=== PATIENT | female | born 1990 | race African-American/Black ===

== ENCOUNTER 2018-05-13 22:25 | Emergency (ER) | payer OTHER ==
[2018-05-13 22:29] VITALS: BP 113/70; PULSE 80; TEMP 99.1; BMI 24.9
--- NOTE | 2018-05-13 23:00 | PDOC ---
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 Patient states the pain is exacerbated when eating and there are no alleviating factors. Past History - Past Medical History Allergies/Adverse Reactions: Allergies Allergy/AdvReac Type Severity Reaction Status Date / Time Sulfa (Sulfonamide Allergy Verified 05/13/18 22:29 Antibiotics) Home Medications: Ambulatory Orders Vit/Iron Fum/Folic AC [ Tablet] 1 each PO DAILY 02/08/15 Asthma: Yes COPD: No - Immunization History Immunization Up to Date: Yes - Suicide/Smoking/Psychosocial Hx Smoking History: Never smoked Hx Alcohol Use: Yes (occasion) Drug/Substance Use Hx: No Substance Use Type: None Review of Systems - Review of Systems Able to Perform ROS?: Yes Comments:: 05/13/18 23:07 CONSTITUTIONAL: Absent: fever, chills, diaphoresis, generalized weakness, malaise, loss of appetite HEENT: +right sided sore throat +right earache Absent: rhinorrhea, nasal congestion, throat swelling, difficulty swallowing, mouth swelling,eye pain, visual Changes CARDIOVASCULAR: Absent: chest pain, loss of consciousness, palpitations, irregular heart rate, peripheral edema RESPIRATORY: Absent: cough, shortness of breath, dyspnea with exertion, orthopnea, wheezing, stridor, hemoptysis GASTROINTESTINAL: Absent: abdominal pain, abdominal distension, nausea, vomiting, diarrhea, constipation, melena, hematochezia SKIN: Absent: rash, itching, pallor Is the patient limited Romansh proficient: No *Physical Exam - Vital Signs Last Vital Signs Temp Pulse Resp BP Pulse Ox 99.1 F 80 18 113/70 100 05/13/18 22:27 05/13/18 22:27 05/13/18 22:27 05/13/18 22:27 05/13/18 22:27 - Physical Exam Comments: 05/13/18 23:07 GENERAL: Well developed, well nourished. Awake and alert. No acute distress. HEENT: +exudate to right tonsillar region without swelling/erythema Normocephalic, atraumatic. PERRLA, EOMI. No conjunctival pallor. Sclera are non- icteric. Moist mucous membranes. Oropharynx is clear. NECK: Supple. Full ROM. No JVD. Carotid pulses 2+ and symmetric, without bruits. No thyromegaly. No lymphadenopathy. CARDIOVASCULAR: Regular rate and rhythm. No murmurs, rubs, or gallops. Distal pulses are 2+ and symmetric. PULMONARY: No evidence of respiratory distress. Lungs clear to auscultation bilaterally. No wheezing, rales or rhonchi. ABDOMINAL: Soft. Non-tender. Non-distended. No rebound or guarding. No organomegaly. Normoactive bowel sounds. SKIN: Warm and dry. Normal capillary refill. No rashes. No jaundice. *DC/Admit/Observation/Transfer Diagnosis at time of Disposition: Strep throat - Discharge Dispostion Disposition: HOME Condition at time of disposition: Stable Decision to Admit order: No - Referrals Referrals: Fernando Garner MD [Staff Physician] - - Patient Instructions Printed Discharge Instructions: DI for Strep Throat Additional Instructions: Gargle with salt water Take Tylenol alternating with Motrin as needed for pain You were given antibiotics by injection while in the emergency department. Therefore, you do not need to take any further medication. Follow with the ENT/Dr. Garner Return back to the ER for severe/persistent or worsening symptoms. - Post Discharge Activity
[2018-05-13] MEDS ORDERED: PENICILLIN G BENZATHINE 1,200,000 UNIT/2 ML PFS IM ONE (23:14)
[2018-05-13] MEDS ORDERED: PENICILLIN G BENZATHINE 2,400,000 UNIT/4 ML PFS ONE (23:38)
== END 2018-05-13 23:48 | disposition home or self-care (01) ==
LOC: JER 22:25
DX: J02.0 Streptococcal pharyngitis (principal); B95.0 Streptococcus, group A, as the cause of diseases classified elsewhere
CPT/HCPCS: 87070; 87077; 87430; 96372; 99282-25

== ENCOUNTER 2018-06-18 22:50 | Emergency (ER) | payer OTHER ==
[2018-06-18 23:06] VITALS: TEMP 98; BMI 24.5
--- NOTE | 2018-06-18 23:51 | PDOC ---
Attending Attestation - HPI HPI: 06/19/18 00:30 The patient is a 27 year old female with a PMH of asthma with no prior hospitalizations or intubations and depression who presents to the ED with abdominal cramping for the past week. Patient describes the abdominal cramping as a 6/10 in severity, intermittent and lasting for 20 minutes at a time. Patient has a history of chlamydia for which she received treatment. Patient is sexually active with one partner, and uses condoms. Patient has an IUD in place and has not had her period since. Patient has also been able to notice the IUD string over the past week. The patient denies chest pain, shortness of breath, headache and dizziness. Denies fever, chills, nausea, vomit, diarrhea and constipation. Denies dysuria, frequency, urgency and hematuria. Allergies: Sulfa Surgical: x2 Social: no reported alcohol, drug or cigarette use. <Bisi Grant - Last Filed: 06/19/18 00:30> - Resident Resident Name: Guicho Corbin - Physicial Exam PE: 06/19/18 01:57 Agree with resident exam. Patient is alert and oriented and in no acute distress. Abdomen is non soft, non tender and non distended without guarding or rebound. - Medical Decision Making 06/19/18 01:57 Pt presents to the ED complaining of pelvic pain that has been intermittent for several weeks. Differential includes PID, ovarian torsion, less likely intraabdominal pathology or UTI. Will check labs and pelvic US, reassess. <Hortencia Fernando - Last Filed: 06/19/18 01:56> - Medical Decision Making 06/19/18 03:07 Patient Name: MERVAT LEAL THIS IS A PRELIMINARY REPORT FROM [facility] DATE OF SERVICE: 2018-06-19 00:36:28 IMAGES: 48 EXAM: ULTRASOUND PELVIS, COMPLETE AND TRANSVAGINAL ULTRASOUND AND DUPLEX SCAN PELVIS, COMPLETE No ovarian torsion. Color flow bilaterally with appropriate arterial and venous waveforms. Small follicles in each ovary. No free fluid. IUD in satisfactory position in uterus. Endometrial stripe complex 4 mm thick. Unremarkable visualized portion of bladder. <Daniela Espinoza - Last Filed: 06/19/18 03:07>
--- NOTE | 2018-06-18 23:53 | PDOC ---
History of Present Illness - General Chief Complaint: Pain Stated Complaint: CRAMPS/SPOTTING Time Seen by Provider: 06/18/18 23:47 History Source: Patient - History of Present Illness Initial Comments: 06/18/18 23:53 The patient is a 27 year old female with a PMH of Asthma (no hospitalizations, no intubations) and Major Depressive Disorder who presents to our ED c/o 1 week h/o abdominal cramping. Cramping is intermittent, sharp, lasts 20 minutes and occurs multiple times daily. No fevers/chills, diarrhea/constipation, dysuria/ hematuria. Patient has Mirena IUD and states she has not had her period since IUD placement. Notes she has not been able to feel her IUD string for the past 1 week. H/o Chlamydia 6 months previous for which she and her partner were treated. Uses condoms for STI protection. H/o vaginal candidiasis two weeks previous, s/p Diflucan. Patient denies chest pain, shortness of breath, vaginal bleeding, nausea/ vomiting. Allergy: Sulfa Meds: Symbicort, Sertraline Surgical: C/S x2 Social: social alcohol, denies nicotine and recreational drugs PMD: None - will refer to IM resident clinic As per EMR patient evaluated in 2014 for gestational vaginal bleed at which time TVUS showed blighted ovary. Past History - Past Medical History Allergies/Adverse Reactions: Allergies Allergy/AdvReac Type Severity Reaction Status Date / Time Sulfa (Sulfonamide Allergy Verified 06/19/18 02:56 Antibiotics) Home Medications: Ambulatory Orders NK [No Known Home Medication] 06/19/18 Asthma: Yes Cancer: No COPD: No DVT: No Dialysis: No Disorders: No HTN: No - Surgical History Abdominal Surgery: No Appendectomy: No Cholecystectomy: No Gastric Stapling: No GI Surgery: No - Immunization History Immunization Up to Date: Yes - Suicide/Smoking/Psychosocial Hx Smoking History: Never smoked Hx Alcohol Use: Yes (occasion) Drug/Substance Use Hx: No Substance Use Type: None Review of Systems - Review of Systems Constitutional: No: Chills, Fever HEENTM: No: Blurred Vision, Double Vision Respiratory: No: Cough, Shortness of Breath Cardiac (ROS): No: Chest Pain, Lightheadedness, Palpitations, Syncope ABD/GI: Yes: Abdominal cramping. No: Constipated, Diarrhea, Nausea, Vomiting, Tarry Stools : No: Burning, Dysuria, Frequency, Urgency *Physical Exam - Vital Signs Last Vital Signs Temp Pulse Resp BP Pulse Ox 98 F 63 20 105/59 L 99 06/18/18 23:04 06/18/18 23:04 06/18/18 23:04 06/18/18 23:04 06/18/18 23:04 - Physical Exam General Appearance: Yes: Nourished, Appropriately Dressed HEENT: positive: Normal Voice, Hearing Grossly Normal Neck: positive: Trachea midline, Supple Respiratory/Chest: positive: Lungs Clear, Normal Breath Sounds Cardiovascular: positive: S1, S2. negative: Edema Female Pelvic Exam: positive: cervical os closed, CMT, other (CMT, no discharge , no blood in vaginal vault, non palpable adnexa B/L). negative: adnexal tenderness Gastrointestinal/Abdominal: positive: Normal Bowel Sounds, Soft, Other ( suprapubic TTP) Musculoskeletal: negative: CVA Tenderness (R), CVA Tenderness (L) Moderate Sedation - Procedure Monitoring Vital Signs: Procedure Monitoring Vital Signs Temperature 98 F 06/18/18 23:04 Pulse Rate 63 06/18/18 23:04 Respiratory Rate 20 06/18/18 23:04 Blood Pressure 105/59 L 06/18/18 23:04 O2 Sat by Pulse Oximetry (%) 99 06/18/18 23:04 ED Treatment Course - LABORATORY CBC & Chemistry Diagram: 06/19/18 00:25 12 00:25 Medical Decision Making - Medical Decision Making 06/19/18 00:07 27 year old female with suprapubic abdominal cramping w/o vaginal bleeding. H/ o STI. VS unremarkable, suprapubic TTP on PE. Frontal diagnosis: , STI/PID, UTI, r/o ovarian pathology including torsion. Will obtain basic labs, urine , UA, G/C, HIV (patient offered and orally consented) TVUS and pelvic exam. Reassess. 06/19/18 00:22 CMT, non palpable adenexa on pelvic exam. Labs, TVUS pending. 06/19/18 01:10 No leukocytosis, CMP, UA, Urine pending 06/19/18 01:25 Urine negative Patient @ US Urine shows 1+ blood, (-) leukocyte esterase, (-) nitrite, 1 WBC 06/19/18 02:00 HIV negative Patient reassessed @ bedside. Symptomatically improved TVUS read pending 06/19/18 03:07 TVUS negative for ovarian torsion and free fluid. IUD in place. At this time given patient's clinical condition and non-concerning TVUS and labs patient is safe for discharge home and resort manager follow-up. Will discharge patient home with return precautions, resort manager follow-up. Patient counseled to call ED in 48 hours for G/C results. I discussed the physical exam findings, ancillary test results and final diagnoses with the patient. I answered all of the patient's questions. The patient was satisfied with the care received and felt comfortable with the discharge plan and treatment plan. The patient will return to the Emergency Department with any new, persistent or worsening symptoms. *DC/Admit/Observation/Transfer Diagnosis at time of Disposition: Suprapubic cramping - Discharge Dispostion Disposition: HOME Condition at time of disposition: Good Decision to Admit order: No - Referrals - Patient Instructions Additional Instructions: You were evaluated today for your abdominal cramping. Your labs and ultrasound showed no concerning findings. At this time you are safe for discharge home. Your HIV testing was negative. The results of your gonorrhea and chlamydia test will be available in 48 hours. You can call the ED in 48 hours for the results. Please make a follow-up appointment with your OB-Physician Support Coordinator in the next 3 days and take the copy of your ultrasound report with you when you go to your appointment. Your care is not complete until you follow-up with your OB-Physician Support Coordinator. Return to the Emergency Department for any new/worsening/concerning findings. - Post Discharge Activity
[2018-06-19] MEDS ORDERED: ACETAMINOPHEN 1000 MG/100 ML VIAL (NON FORMULARY) IVPB ONE (00:30)
[2018-06-19 00:34] LABS: BASO % 0.7 % (0-2.0); EOS % 2.3 % (0-4.5); HEMOGLOBIN 13.2 GM/dL (10.7-15.3); LYMPH % 55.2 % (8-40); MCH 28.8 pg (25.7-33.7); MCHC 33.9 g/dl (32.0-36.0); MEAN PLT VOLUME 8.6 fl (7.5-11.1); MONO % 7.1 % (3.8-10.2); NEUT % 34.7 % (42.8-82.8); PLATELET COUNT 243 K/MM3 (134-434); RBC 4.58 M/mm3 (3.60-5.2); RDW 14.1 % (11.6-15.6); WHITE BLOOD COUNT 5.1 K/mm3 (4.0-10.0)
[2018-06-19 01:10] LABS: URINE APPEARANCE CLEAR; URINE BILIRUBIN NEGATIVE (<2.0 mg/dL); URINE COLOR YELLOW; URINE GLUCOSE (UA) NEGATIVE (NEGATIVE); URINE KETONE NEGATIVE (NEGATIVE); URINE LEUK ESTERASE NEGATIVE (NEGATIVE); URINE NITRITE NEGATIVE (NEGATIVE); URINE PROTEIN NEGATIVE (NEGATIVE); URINE UROBILINOGEN 4.0 E.U/dl mg/dL (0.2-1.0)
[2018-06-19 01:11] LABS: HCG,QUALITATIVE URINE Negative
[2018-06-19 01:13] LABS: ALBUMIN 3.8 g/dl (3.4-5.0); ALK PHOS 49 U/L (45-117); ANION GAP 8 MMOL/L (8-16); BILIRUBIN,TOTAL 0.1 mg/dL (0.2-1); BLOOD UREA NITROGEN 11 mg/dL (7-18); CALCIUM 8.4 mg/dL (8.5-10.1); CHLORIDE 108 mmol/L (98-107); CO2 26 mmol/L (21-32); CREATININE 0.8 mg/dL (0.55-1.3); GLUCOSE,RANDOM 87 mg/dL (74-106); POTASSIUM 3.9 mmol/L (3.5-5.1); SGOT/AST 18 U/L (15-37); SGPT/ALT 22 U/L (13-61); SODIUM 143 mmol/L (136-145)
[2018-06-19] MEDS ORDERED: ACETAMINOPHEN INJECTION 100 ML IVPB ONE (01:42)
[2018-06-19 01:56] LABS: EPI CELLS RARE /HPF (FEW); URINE MUCUS RARE
[2018-06-19 03:45] VITALS: BP 118/74; PULSE 74
== END 2018-06-19 03:45 | disposition home or self-care (01) ==
LOC: JER 22:50
PROC: 3E033NZ Introduction of Analgesics, Hypnotics, Sedatives into Peripheral Vein, Percutaneous Approach (ICD-10-PCS; principal; 2018-06-18)
DX: R10.2 Pelvic and perineal pain (principal); Z97.5 Presence of (intrauterine) contraceptive device
CPT/HCPCS: 36415; 76830-TC; 80053; 81003; 81015; 84703; 85025; 87086; 87389; 87491; 87591; 96374; 99283-25; J0131

== ENCOUNTER 2018-09-11 22:22 | Emergency (ER) | payer OTHER ==
[2018-09-11 22:43] VITALS: BP 114/75; PULSE 68; TEMP 98.2; BMI 24.9
[2018-09-11] MEDS ORDERED: predniSONE 20 MG TABLET (UD) PO ONE (23:42)
[2018-09-11] MEDS ORDERED: diphenhydrAMINE HCL 25 MG CAPSULE (FP) PO ONE ×2 (23:42→23:46)
[2018-09-11] MEDS ORDERED: RANITIDINE HCL 150 MG TABLET (FP) PO ONE (23:43)
[2018-09-11] MEDS ORDERED: predniSONE 20 MG TABLET (UD) ONE (23:45)
[2018-09-11] MEDS ORDERED: RANITIDINE HCL 150 MG TABLET (FP) ONE (23:46)
--- NOTE | 2018-09-11 23:50 | PDOC ---
History of Present Illness - General Chief Complaint: Rash Stated Complaint: Rash Time Seen by Provider: 09/11/18 23:02 History Source: Patient Exam Limitations: No Limitations - History of Present Illness Initial Comments: 09/11/18 23:45 Patient is a 28-year-old female with h/o asthma, c/o itchy rash generalized cx 2 days. States she had not used any new products or had any new foods but has been on Amoxicillin x 8 days. She has had amoxicillin in the past without any complications. States this evening she feels like her lips were getting a little swollen and so came to the emergency room for evaluation. Denies any shortness of breath, no throat involvement. PMHX: as above pSoVCHX: neg etoh, drug, cig ALL: Sulfa GENERAL/CONSTITUTIONAL: [No fever or chills. No weakness. No weight change.] HEAD, EYES, EARS, NOSE AND THROAT: [No change in vision. No ear pain or discharge. No sore throat.] CARDIOVASCULAR: [No chest pain or shortness of breath.] RESPIRATORY: [No cough, wheezing, or hemoptysis.] GASTROINTESTINAL: [No nausea, vomiting, diarrhea or constipation. No rectal bleeding.] GENITOURINARY: [No dysuria, frequency, or change in urination.] MUSCULOSKELETAL: [No joint or muscle swelling or pain. No neck or back pain.] SKIN AND BREASTS: (+) rash or easy bruising.] NEUROLOGIC: [No headache, vertigo, loss of consciousness, or loss of sensation.] PSYCHIATRIC: [No depression or anxiety.] ENDOCRINE: [No increased thirst. No abnormal weight change.] HEMATOLOGIC/LYMPHATIC: [No anemia, easy bleeding, or history of blood clots, (+ ) lymph nodes.] ALLERGIC/IMMUNOLOGIC: [No hives or skin allergy. No latex allergy.] GENERAL: [The patient is awake, alert, and fully oriented, in no acute distress. ] HEAD: [Normal with no signs of trauma.] EYES: [Pupils equal, round and reactive to light, extraocular movements intact, sclera anicteric, conjunctiva clear.] ENT: [Ears normal, nares patent, oropharynx clear without exudates, no swelling. Moist mucous membranes, no lip swelling.] NECK: [Normal range of motion, supple with nontender lymphadenopathy, JVD, or masses.] LUNGS: [Breath sounds equal, clear to auscultation bilaterally. No wheezes, and no crackles.] HEART: [Regular rate and rhythm, normal S1 and S2 without murmur, rub.] ABDOMEN: [Soft, nontender, normoactive bowel sounds. No guarding, no rebound. No masses.] EXTREMITIES: [Normal range of motion, no edema. No clubbing or cyanosis. No cords, erythema, or tenderness.] NEUROLOGICAL: [Cranial nerves II through XII grossly intact. Normal speech, normal gait.] PSYCH: [Normal mood, normal affect.] SKIN: [Warm, Dry, normal turgor, generalized hives, (-) lesions noted.] Past History - Past Medical History Allergies/Adverse Reactions: Allergies Allergy/AdvReac Type Severity Reaction Status Date / Time Sulfa (Sulfonamide Allergy Verified 06/19/18 02:56 Antibiotics) Home Medications: Ambulatory Orders Diphenhydramine HCl [Benadryl -] 25 mg PO Q6H #28 capsule 09/11/18 Prednisone [Deltasone] 40 mg PO DAILY #6 tablet 09/11/18 Ranitidine HCl [Zantac] 150 mg PO DAILY #3 tablet 09/11/18 Asthma: Yes Cancer: No COPD: No DVT: No Dialysis: No Disorders: No HTN: No - Surgical History Abdominal Surgery: No Appendectomy: No Cholecystectomy: No Gastric Stapling: No GI Surgery: No - Immunization History Immunization Up to Date: Yes - Suicide/Smoking/Psychosocial Hx Smoking History: Never smoked Have you smoked in the past 12 months: No Information on smoking cessation initiated: No Hx Alcohol Use: No Drug/Substance Use Hx: No Substance Use Type: None *Physical Exam - Vital Signs Last Vital Signs Temp Pulse Resp BP Pulse Ox 98.2 F 68 20 114/75 99 09/11/18 22:41 09/11/18 22:41 09/11/18 22:41 09/11/18 22:41 09/11/18 22:41 Moderate Sedation - Procedure Monitoring Vital Signs: Procedure Monitoring Vital Signs Temperature 98.2 F 09/11/18 22:41 Pulse Rate 68 09/11/18 22:41 Respiratory Rate 20 09/11/18 22:41 Blood Pressure 114/75 09/11/18 22:41 O2 Sat by Pulse Oximetry (%) 99 09/11/18 22:41 Medical Decision Making - Medical Decision Making 09/11/18 23:45 Patient is a 28-year-old female with h/o asthma, c/o itchy rash generalized cx 2 days. States she had not used any new products or had any new foods but has been on Amoxicillin x 8 days. She has had amoxicillin in the past without any complications. States this evening she feels like her lips were getting a little swollen and so came to the emergency room for evaluation. Denies any shortness of breath, no throat involvement. Symptoms consistent with ALLERGIC reaction allergen unknown Benadryl. Benadryl 50 mg by mouth, sent tach 150 mg by mouth, prednisone 60 mg by mouth. Patient instructed to stop the amoxicillin.. ALLERGIES tested recommended. 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 I discussed the physical exam findings, ancillary test results and final diagnoses with the patient. I answered all of the patient's questions. The patient was satisfied with the care received and felt comfortable with the discharge plan and treatment plan. The Patient agrees to follow up with the primary care physician within 24-72 hours. *DC/Admit/Observation/Transfer Diagnosis at time of Disposition: Urticaria Allergic reaction Qualifiers: Encounter type: initial encounter Qualified Code(s): T78.40XA - Allergy, unspecified, initial encounter - Discharge Dispostion Disposition: HOME Condition at time of disposition: Stable - Prescriptions Prescriptions: Diphenhydramine HCl [Benadryl -] 25 mg PO Q6H #28 capsule Prednisone [Deltasone] 40 mg PO DAILY #6 tablet Ranitidine HCl [Zantac] 150 mg PO DAILY #3 tablet - Referrals - Patient Instructions Printed Discharge Instructions: DI for Hives Additional Instructions: Your Discharge Instructions: You must call primary care physician within 24 hours to arrange follow-up. Return to the Emergency Department with any new, persistent or worsening symptoms, for fever, chills, SOB, dizziness or any other concerning changes that may occur. follow-up with her cnc milling machine operator for ALLERGY testing. - Post Discharge Activity Forms/Work/School Notes: Back to Work
== END 2018-09-11 23:56 | disposition home or self-care (01) ==
LOC: JER 22:22
DX: L50.0 Allergic urticaria (principal); T78.40XA Allergy, unspecified, initial encounter
CPT/HCPCS: 99281-25

== ENCOUNTER 2018-11-16 09:20 | Emergency (ER) | payer OTHER ==
[2018-11-16 09:32] VITALS: BP 131/87; PULSE 91; TEMP 98.5; BMI 24.9
[2018-11-16] MEDS ORDERED: LIDOCAINE 5% TOPICAL PATCH TP ONE (11:09)
[2018-11-16] MEDS ORDERED: KETOROLAC TROMETHAMINE 60 MG/2 ML VIAL IM ONE (11:09)
--- NOTE | 2018-11-16 11:09 | PDOC ---
History of Present Illness - General Chief Complaint: Back Pain Stated Complaint: LOWER BACK PAIN Time Seen by Provider: 11/16/18 10:30 History Source: Patient Exam Limitations: No Limitations Past History - Travel Traveled outside of the country in the last 30 days: No Close contact w/someone who was outside of country & ill: No - Past Medical History Allergies/Adverse Reactions: Allergies Allergy/AdvReac Type Severity Reaction Status Date / Time Sulfa (Sulfonamide Allergy Verified 11/16/18 09:29 Antibiotics) Home Medications: Ambulatory Orders Diphenhydramine HCl [Benadryl -] 25 mg PO Q6H #28 capsule 09/11/18 Prednisone [Deltasone] 40 mg PO DAILY #6 tablet 09/11/18 Ranitidine HCl [Zantac] 150 mg PO DAILY #3 tablet 09/11/18 Cyclobenzaprine HCl [Flexeril -] 10 mg PO HS #10 tablet 11/16/18 Ibuprofen 600 mg PO Q6H #30 tablet 11/16/18 Asthma: Yes Cancer: No COPD: No DVT: No Dialysis: No Disorders: No HTN: No Psychiatric Problems: Yes (DEPRESSION) - Surgical History Abdominal Surgery: No Appendectomy: No Cholecystectomy: No Gastric Stapling: No GI Surgery: No - Immunization History Immunization Up to Date: Yes - Suicide/Smoking/Psychosocial Hx Smoking History: Never smoked Have you smoked in the past 12 months: No Hx Alcohol Use: No Drug/Substance Use Hx: No Substance Use Type: None Review of Systems - Review of Systems Able to Perform ROS?: Yes Comments:: 11/16/18 11:09 CONSTITUTIONAL: Absent: fever, chills, diaphoresis, generalized weakness, malaise, loss of appetite GASTROINTESTINAL: Absent: abdominal pain, abdominal distension, nausea, vomiting, diarrhea, constipation, melena, hematochezia GENITOURINARY: Absent: dysuria, frequency, urgency, hesitancy, hematuria, flank pain, genital pain MUSCULOSKELETAL: Present: low back pain Absent: arthralgia, joint swelling SKIN: Absent: rash, itching, pallor NEUROLOGIC: Absent: headache, focal weakness or paresthesias, dizziness, unsteady gait, seizure, mental status changes, bladder or bowel incontinence PSYCHIATRIC: Absent: anxiety, depression, suicidal or homicidal ideation, hallucinations. Is the patient limited Togolese proficient: No *Physical Exam - Vital Signs Last Vital Signs Temp Pulse Resp BP Pulse Ox 98.5 F 91 H 18 131/87 100 11/16/18 09:29 11/16/18 09:29 11/16/18 09:29 11/16/18 09:29 11/16/18 09:29 - Physical Exam Comments: 11/16/18 11:09 GENERAL: Well developed, well nourished. Awake and alert. No acute distress. NECK: Supple. Full ROM. No JVD. Carotid pulses 2+ and symmetric, without bruits. No thyromegaly. No lymphadenopathy. MUSCULOSKELETAL TTP of the R paraspinous muscles, L5-S1, with palpable knot consistent with muscle spasm. (-) straight leg raise. Referred pain up to T-12/L1 on the R side. Normal range of motion at all joints. No bony deformities or tenderness. No CVA tenderness. EXTREMITIES: No cyanosis. No clubbing. No edema. No calf tenderness. SKIN: Warm and dry. Normal capillary refill. No rashes. No jaundice. NEUROLOGICAL: Alert, awake, appropriate. Cranial nerves 2-12 intact. No deficits to light touch and temperature in face, upper extremities and lower extremities. No motor deficits in the in face, upper extremities and lower extremities. Normoreflexic in the upper and lower extremities. Normal speech. Toes are down- going bilaterally. Gait is normal without ataxia. PSYCHIATRIC: Cooperative. Good eye contact. Appropriate mood and affect. Medical Decision Making - Medical Decision Making 11/16/18 11:09 the patient is a 28-year-old female with no past medical history who presents to the emergency department today for lower back pain. Patient states she was lifting a heavy dresser while moving this morning when she twisted her back the wrong way. She states she felt a pop and then she had pain in the low back. Denies falling, loss of consciousness, neck pain, numbness and tingling down the extremities, weakness to the extremities, bladder/bowel incontinence, saddle anesthesia. A/P: Low back pain -Pt with TTP of the R paraspinous muscles, L5-S1, with palpable knot consistent with muscle spasm. (-) straight leg raise. Referred pain up to T-12/L1 on the R side. -No fever. No saddle anesthesia or bladder/bowel incontinence. No CVA tenderness. -Pt is neurologically intact on exam with no focal findings. -Toradol given with relief of symptoms -DC home. Pt to f/u with her PCP. Ortho referral given. -I discussed the physical exam findings, ancillary test results and final diagnoses with the patient. I answered all of the patient's questions. The patient was satisfied with the care received and felt comfortable with the discharge plan and treatment plan. The Patient agrees to follow up with the primary care physician/specialist within 24-72 hours. Return precautions were given. *DC/Admit/Observation/Transfer Diagnosis at time of Disposition: Low back pain Qualifiers: Chronicity: acute Back pain laterality: right Sciatica presence: without sciatica Qualified Code(s): M54.5 - Low back pain - Discharge Dispostion Disposition: HOME Condition at time of disposition: Stable Decision to Admit order: No - Prescriptions Prescriptions: Cyclobenzaprine HCl [Flexeril -] 10 mg PO HS #10 tablet Ibuprofen 600 mg PO Q6H #30 tablet - Referrals Referrals: Richard Rinaldi DO [Staff Physician] - - Patient Instructions Printed Discharge Instructions: DI for Low Back Pain Additional Instructions: You were evaluated for your low back pain today. It is most likely due to a muscle spasm Please take the Motrin as directed Take the Flexiril every 8 hours the first day. Then take the medication at night only. Do not drink or drive after taking this medication as it may make you drowsy. You may apply warm compresses to the area. Please follow up with orthopedics if your symptoms do not improve this week; a referral has been provided to you Return to the ER for worsening pain despite treatment, numbness/weakness down the extremities, changes in the way you walk, numbness/tingling to the groin, if you have bladder/bowel incontinence, or if you have any changes in your symptoms. - Post Discharge Activity Forms/Work/School Notes: Back to Work
[2018-11-16] MEDS ORDERED: KETOROLAC TROMETHAMINE 60 MG/2 ML VIAL ONE (11:26)
[2018-11-16] MEDS ORDERED: LIDOCAINE 5% TOPICAL PATCH ONE (11:26)
[2018-11-16] MEDS ORDERED: LIDOCAINE PATCH REMOVAL MC SCH (22:00)
== END 2018-11-16 12:11 | disposition home or self-care (01) ==
LOC: JERFT 09:20
PROC: 3E0233Z Introduction of Anti-inflammatory into Muscle, Percutaneous Approach (ICD-10-PCS; principal; 2018-11-16)
DX: M54.5 Low back pain (principal); F32.9 Major depressive disorder, single episode, unspecified; J45.909 Unspecified asthma, uncomplicated
CPT/HCPCS: 96372; 99281-25